=== PATIENT | female | born 1970 | race American Indian/Alaskan Native ===

== ENCOUNTER 2017-09-07 13:27 | Emergency (ER) | payer BC, OTHER ==
[2017-09-07 13:47] VITALS: BP 183/90; PULSE 72; RESP 16; TEMP 98.1; O2SAT 100
--- NOTE | 2017-09-07 14:44 | C.PDOC ---
History Of Present Illness 46 year old female presents to the emergency room complaining of 1 week of generalized malaise. States that for the past 2 days shes developed flu-like symptoms with body aches and cough. No shortness of breath, chest pain, fevers or chills. Took Motrin yesterday without relief of symptoms. PMD: None Time Seen by Provider: 09/07/17 13:51 Chief Complaint (Nursing): Flu-like Symptoms History Per: Patient History/Exam Limitations: no limitations Onset/Duration Of Symptoms: Days (x 1 week) Current Symptoms Are (Timing): Still Present Past Medical History Reviewed: Historical Data, Nursing Documentation, Vital Signs Vital Signs: Last Vital Signs Temp 98.1 F 09/07/17 13:43 Pulse 72 09/07/17 13:43 Resp 16 09/07/17 13:43 BP 183/90 H 09/07/17 13:43 Pulse Ox 100 09/07/17 15:46 - Medical History PMH: HTN Family History: States: No Known Family Hx - Social History Hx Tobacco Use: No Hx Alcohol Use: No Hx Substance Use: No - Immunization History Hx Tetanus Toxoid Vaccination: No Hx Influenza Vaccination: No Hx Pneumococcal Vaccination: No Review Of Systems Except As Marked, All Systems Reviewed And Found Negative. Constitutional: Positive for: Malaise, Other (Body aches). Negative for: Fever , Chills Cardiovascular: Negative for: Chest Pain Respiratory: Positive for: Cough. Negative for: Shortness of Breath Physical Exam - Physical Exam Appears: Non-toxic, No Acute Distress Skin: Normal Color, Warm, Dry Head: Atraumatic, Normacephalic Eye(s): bilateral: Normal Inspection, PERRL, EOMI Oral Mucosa: Moist Throat: Normal, No Erythema, No Exudate Neck: Normal, Normal ROM Chest: Symmetrical Cardiovascular: Rhythm Regular Respiratory: Normal Breath Sounds, No Accessory Muscle Use Gastrointestinal/Abdominal: Normal Exam, Soft, No Tenderness Neurological/Psych: Oriented x3, Normal Speech ED Course And Treatment O2 Sat by Pulse Oximetry: 100 (RA) Pulse Ox Interpretation: Normal - Radiology CXR: Viewed By Me, Read By Radiologist CXR Interpretation: Yes: No Acute Disease. No: Infiltrates Progress Note: Chest x-ray is negative for infiltrates. Stable for discharge home. Treated with motrin and zithromax PO. On re-evaluation lungs clear Reassessment Condition: Improved Medical Decision Making Medical Decision Making: Time: 14:40 Initial Plan: * Chest X-ray * Motrin 600mg Disposition Counseled Patient/Family Regarding: Studies Performed, Diagnosis, Need For Followup, Rx Given - Disposition Referrals: Jacky Xavier DO [Staff Provider] - Disposition: HOME/ ROUTINE Disposition Time: 16:00 Condition: STABLE Additional Instructions: Follow up with PMD for further evaluation Return to ED if any increase symptoms Prescriptions: Azithromycin [Zithromax] 250 mg PO DAILY #4 tab Oseltamivir Phosphate [Tamiflu] 75 mg PO BID #10 capsule Instructions: Influenza (ED) Forms: [employer] ([place]), Work Excuse - POA Present On Arrival: None - Clinical Impression Clinical Impression: Influenza, Influenza-like illness - PA / COMPLEX DIRECTOR / Resident Statement / has reviewed & agrees with the documentation as recorded. - Scribe Statement The provider has reviewed the documentation as recorded by the Scribe (Sonia Alejandro) All medical record entries made by the Scribe were at my direction and personally dictated by me. I have reviewed the chart and agree that the record accurately reflects my personal performance of the history, physical exam, medical decision making, and the department course for this patient. I have also personally directed, reviewed, and agree with the discharge instructions and disposition.
--- NOTE | 2017-09-07 15:20 | RAD ---
HISTORY: Cough r/o CHF COMPARISON: No prior. TECHNIQUE: Chest PA and lateral FINDINGS: LUNGS: No active pulmonary disease. . PLEURA: No significant pleural effusion identified. No pneumothorax apparent. CARDIOVASCULAR: Normal. OSSEOUS STRUCTURES: Minor multilevel degenerative spondylosis of the thoracic spine. . VISUALIZED UPPER ABDOMEN: Normal. OTHER FINDINGS: None. IMPRESSION: No acute infiltrates.
== END 2017-09-07 15:54 | disposition home or self-care (01) ==
LOC: C.ER 13:27
DX: J11.1 Influenza due to unidentified influenza virus with other respiratory manifestations (principal)